=== PATIENT | female | born 1940 | race Caucasian/White ===

== ENCOUNTER 2018-02-09 01:46 | Observation (INO) | payer MEDICARE, MEDICAID ==
--- NOTE | 2018-02-09 02:21 | C.PDOC ---
History Of Present Illness 77 year old female is brought to the ED from her Long Term for evaluation. As per Long Term patient was found "unresponsive at the dinner table. Patient is usually rambunctious and agitated. While in the ED patient denies any physical complaint or pain. Chief Complaint (Nursing): Altered Mental Status History Per: Patient, Other (Long Term) History/Exam Limitations: None Onset/Duration Of Symptoms: Unknown Onset Of Symptoms: Cannot Confirm Onset Current Symptoms Are (Timing): Better Usual Baseline: Alert Oriented Exacerbating Factor(s): Unknown Use Of Anticoag/Antiplatelets: No Severity: None Recent travel outside of the [place]: No Additional History Per: Patient, Long Term Associated Symptoms: Confused Past Medical History Reviewed: Historical Data, Nursing Documentation, Vital Signs Vital Signs: Last Vital Signs Temp 97.6 F 02/09/18 04:21 Pulse 101 H 02/09/18 04:21 Resp 18 02/09/18 04:21 BP 134/72 02/09/18 04:21 Pulse Ox 100 02/09/18 06:53 - Medical History PMH: Arthritis (lt knee), Dementia, Diabetes, HTN, Hypercholesterolemia Denies: Rheumatoid Arthritis Surgical History: No Surg Hx - [facility] Procedures ESOPHAGOGASTRODUODENOSCOPY [EGD] W/CLOSED BIOPSY (10/08/13) Family History: States: Unknown Family Hx - Social History Hx Tobacco Use: No Hx Alcohol Use: No Hx Substance Use: No - Immunization History Hx Tetanus Toxoid Vaccination: No Hx Influenza Vaccination: No Hx Pneumococcal Vaccination: No Review Of Systems Constitutional: Negative for: Fever, Chills Cardiovascular: Negative for: Chest Pain, Palpitations Respiratory: Negative for: Shortness of Breath Gastrointestinal: Negative for: Nausea, Vomiting Skin: Negative for: Rash Neurological: Positive for: Confusion. Negative for: Weakness, Numbness Physical Exam - Physical Exam Appears: Non-toxic, No Acute Distress Skin: Normal Color, Warm, Dry Head: Atraumatic, Normacephalic Eye(s): bilateral: Normal Inspection Oral Mucosa: Moist Neck: Normal ROM, Supple Chest: Symmetrical Cardiovascular: Rhythm Regular Respiratory: Normal Breath Sounds, No Rales, No Rhonchi, No Wheezing Gastrointestinal/Abdominal: Soft, No Tenderness, No Guarding, No Rebound Back: Normal Inspection Extremity: Normal ROM, No Tenderness, No Swelling Neurological/Psych: Oriented x3, Normal Speech, Other (no focal deficits) Gait: Steady ED Course And Treatment - Laboratory Results Result Diagrams: 02/09/18 02:34 02/09/18 02:34 ECG: Interpreted By Me, Viewed By Me ECG Rhythm: Sinus Rhythm ECG Interpretation: No Acute Changes, Abnormal Interpretation Of ECG: Sinus tachycardia, poor R -wave progression V1 to V4, abnormal tracings. Rate From EC O2 Sat by Pulse Oximetry: 100 (ON RA) Pulse Ox Interpretation: Normal - CT Scan/US CT head Other Rad Studies (CT/US): Read By Radiologist, Radiology Report Reviewed CT/US Interpretation: FINDINGS: BRAIN: Involutional changes. Periventricular hypoattenuation suggestive of chronic ischemic. changes. No hemorrhage. VENTRICLES: Unremarkable. No ventriculomegaly. BONES/JOINTS: Unremarkable. No acute fracture. SOFT TISSUES: Unremarkable. VASCULATURE: Atherosclerosis. SINUSES: Unremarkable as visualized. No acute sinusitis. MASTOID AIR CELLS: Unremarkable as visualized. No mastoid effusion. IMPRESSION: Involutional changes. Periventricular hypoattenuation suggestive of chronic ischemic changes. NIHSS Stroke Scale - Date/Time Evaluation Performed Date Performed: 02/09/18 Time Performed: 01:50 When Was NIHSS Performed: Baseline - How Severe is the Stoke Level of Consciousness: 0=Alert LOC to Questions: 0=Both comments correct Best Gaze: 0=Normal Visual: 0=No visual loss Facial: 0=Normal Motor Arm - Left: 0=No drift Motor Arm - Right: 0=No drift Motor Leg - Left: 0=No drift Motor Leg - Right: 0=No drift Limb Ataxia: 0=Absent Sensory: 0=Normal Best Language: 0=No aphasia Dysarthia: 0=Normal articulation Extinction & Inattention (Neglect): 0=Normal, no object Severity Of Stroke: 0= No Stroke Medical Decision Making Medical Decision Making: Impression: confused Plan: * CT head * EKG * Labs Disposition Discussed With : Pradeep Felder Doctor Will See Patient In The: Hospital Counseled Patient/Family Regarding: Diagnosis - Disposition Disposition: HOSPITALIZED Disposition Time: 05:13 Condition: STABLE - POA Present On Arrival: None - Clinical Impression Clinical Impression: TIA (transient ischemic attack) - Scribe Statement The provider has reviewed the documentation as recorded by the Scribe Cleveland Ortiz All medical record entries made by the Scribe were at my direction and personally dictated by me. I have reviewed the chart and agree that the record accurately reflects my personal performance of the history, physical exam, medical decision making, and the department course for this patient. I have also personally directed, reviewed, and agree with the discharge instructions and disposition.
[2018-02-09 02:39] LABS: BASO % 0.4 % (0.0-2.0); EOS # 0.2 K/uL (0.0-0.7); EOS % 2.3 % (0.0-4.0); HEMOGLOBIN 12.9 g/dL (11.0-16.0); LYMPH # 2.4 K/uL (1.0-4.3); LYMPH % 35.8 % (20.0-40.0); MEAN CORPUSCULAR HGB CONC 33.8 g/dL (33.0-37.0); MONO # 0.6 K/uL (0.0-0.8); MONO % 9.6 % (0.0-10.0); NEUT # 3.5 K/uL (1.8-7.0); NEUT % 51.9 % (50.0-75.0); RBC 4.44 Mil/uL (3.80-5.20); RED CELL DISTRIBUTION WIDTH 14.4 % (11.5-14.5); WHITE BLOOD COUNT 6.7 K/uL (4.8-10.8)
[2018-02-09 02:49] LABS: ALB/GLOB RATIO 1.5 (1.0-2.1); ALBUMIN 4.4 g/dL (3.5-5.0); CALCIUM 11.7 mg/dl (8.6-10.4)
--- NOTE | 2018-02-09 06:05 | CP.PCM.HP ---
<CourtneydelvinAllyssa davisIvette - Last Filed: 02/09/18 07:29> History of Present Illness - History of Present Illness History of Present Illness: HPI: Patient is a 77 year old female with a history of HTN, DM, HLD, and dementia, who presents to the hospital after staff [facility] found patient in her chair unresponsive- "not answering, eyes closed, diaphoretic". Vitals were taken during the episode, heart rate was 37, BP 211/88 , glucose 88. Staff transferred patient to bed, she became more awake, alert, and combative, and then they called 911. Patient's heart rate increased to 80 fifteen minutes after. Patient is a poor history and has history of dementia with delusions. She reports she is in the hospital because she tripped and fell when she was walking on the side walk. Patient denies hitting any part of her body. Patient denies chest pain, headaches, dyspnea, abdominal pain, nausea, vomiting, fevers, changes in vision, dysuria, and dizziness. PMD: Dr. Amezquita PMHx: HTN, DM, HLD, dementia w/delusions SurgHx: denies FamHx: Mother & sister- [place] SocHx: denies tobacco, alcohol, and drug use; lives at [place] ([phone]) Allergies: NKDA Medication: patient does not know. list provided by [facility]it[facility] Present on Admission - Present on Admission Any Indicators Present on Admission: No Review of Systems - Review of Systems Systems not reviewed;Unavailable: Dementia - Constitutional Constitutional: absent: Fever, Headache - EENT Eyes: absent: Change in Vision - Cardiovascular Cardiovascular: absent: Chest Pain, Dyspnea, Palpitations - Respiratory Respiratory: absent: Dyspnea - Gastrointestinal Gastrointestinal: absent: Abdominal Pain, Diarrhea, Nausea, Vomiting - Genitourinary Genitourinary: absent: Change in Urinary Stream, Dysuria - Musculoskeletal Additional comments: Denies trauma - Neurological Neurological: absent: Dizziness, Headaches, Weakness Past Patient History - Infectious Disease Hx of Infectious Diseases: None - Tetanus Immunizations Tetanus Immunization: Unknown - Past Medical History & Family History Past Medical History?: Yes - Past Social History Smoking Status: Never Smoked - CARDIAC Hx Hypercholesterolemia: Yes Hx Hypertension: Yes - NEUROLOGICAL Hx Dementia: Yes - ENDOCRINE/METABOLIC Hx Diabetes Mellitus Type 2: Yes - MUSCULOSKELETAL/RHEUMATOLOGICAL Hx Arthritis: Yes (lt knee) Hx Rheumatoid Arthritis: No - PSYCHIATRIC Hx Substance Use: No - ANESTHESIA Hx Anesthesia: Yes Hx Anesthesia Reactions: No Meds Allergies/Adverse Reactions: Allergies Allergy/AdvReac Type Severity Reaction Status Date / Time No Known Allergies Allergy Verified 02/09/18 02:08 Physical Exam - Constitutional Appears: Confused - Head Exam Head Exam: NORMAL INSPECTION. absent: ATRAUMATIC - Eye Exam Eye Exam: EOMI, Normal appearance - ENT Exam ENT Exam: Mucous Membranes Dry - Respiratory Exam Respiratory Exam: Clear to Auscultation Bilateral, NORMAL BREATHING PATTERN. absent: Rales, Rhonchi, Wheezes, Respiratory Distress - Cardiovascular Exam Cardiovascular Exam: REGULAR RHYTHM, +S1, +S2 - GI/Abdominal Exam GI & Abdominal Exam: Normal Bowel Sounds, Soft. absent: Distended, Firm, Tenderness - Extremities Exam Extremities exam: Positive for: full ROM, normal inspection, pedal pulses present. Negative for: pedal edema, tenderness - Neurological Exam Neurological exam: Altered, CN II-XII Intact Additional comments: Motor and Sensory intact - Psychiatric Exam Psychiatric exam: Normal Mood - Skin Skin Exam: Dry, Intact, Normal Color, Warm Results - Vital Signs Recent Vital Signs: Last Vital Signs Temp 97.6 F 02/09/18 04:21 Pulse 101 H 02/09/18 04:21 Resp 18 02/09/18 04:21 BP 134/72 02/09/18 04:21 Pulse Ox 100 02/09/18 05:13 - Labs Result Diagrams: 02/09/18 02:34 02/09/18 02:34 Labs: Laboratory Results - last 24 hr 02/09/18 02/09/18 02/09/18 01:54 02:34 02:34 WBC 6.7 RBC 4.44 Hgb 12.9 Hct 38.2 MCV 86.0 MCH 29.0 MCHC 33.8 RDW 14.4 Plt Count 285 MPV 8.0 Neut % (Auto) 51.9 Lymph % (Auto) 35.8 [place] % (Auto) 9.6 Eos % (Auto) 2.3 Baso % (Auto) 0.4 Neut # (Auto) 3.5 Lymph # (Auto) 2.4 [place] # (Auto) 0.6 Eos # (Auto) 0.2 Baso # (Auto) 0.0 Sodium 142 Potassium 4.1 Chloride 105 Carbon Dioxide 23 Anion Gap 19 BUN 24 H Creatinine 1.2 Est GFR ( Amer) 53 Est GFR (Non-Af Amer) 44 POC Glucose (mg/dL) 303 H Random Glucose 249 H Calcium 11.7 H Total Bilirubin 0.3 AST 30 ALT 24 Alkaline Phosphatase 59 Total Protein 7.3 Albumin 4.4 Globulin 2.9 Albumin/Globulin Ratio 1.5 Assessment & Plan (1) Syncope Assessment and Plan: Admitted to telemetry EKG: sinus tachy @103bpm Head CT: involutional changes, periventricualrhypoattenuation suggesting chronic ischemic changes TSH/Free T4: f/u AARON: f/u Orthostatic VS Fall precaution Continue to monitor Status: Acute (2) Senile dementia with delusional features Assessment and Plan: Continue home medication: Rivastigmine 3mg po BID, Seroquel 37.5mg PO HS History of elopement- 1:1 observation Status: Acute (3) HTN (hypertension) Assessment and Plan: Continue home medications: clonidine 0.1mg PO HS, losartan 100mg daily, propanolol 120mg po daily Continue to monitor Status: Chronic (4) DM2 (diabetes mellitus, type 2) Assessment and Plan: Home medication: glipizide 10mg daily, jardiance 10mg daily, metformin 1000mg BID, toujeo 10units sc daily, tradjenta 5mg daily, trulicity 0.75mg sc weekly Continue metformin 1000mg PO BID, Glipizide 10mg PO daily; adjust as needed Hypoglycemic protocol ISS Accuchecks Status: Chronic (5) HLD (hyperlipidemia) Assessment and Plan: Home medication: Simvastatin 40mg PO HS Started Crestor 10mg PO daily Status: Acute (6) Prophylactic measure Assessment and Plan: DVT: SCDs GI: not indicated Heart health, 2g Na, Low carb diet Fall precautions 1:1 due to elopement risk POLST- Full Code (brought in with paperwork from [place]) Status: Acute <Pradeep Felder P - Last Filed: 02/10/18 06:53> Results - Vital Signs Recent Vital Signs: Last Vital Signs Temp 98.0 F 02/10/18 04:30 Pulse 79 02/10/18 04:30 Resp 20 02/10/18 04:30 BP 124/72 06/24/18 04:30 Pulse Ox 98 02/10/18 04:30 - Labs Result Diagrams: 02/09/18 02:34 02/09/18 02:34 Labs: Laboratory Results - last 24 hr 02/09/18 02/09/18 02/09/18 06:45 06:45 07:23 POC Glucose (mg/dL) 211 H Total Creatine Kinase 67 CK-MB (Mass) 1.00 Troponin I < 0.0120 Thyroxine (T4) 7.11 TSH 3rd Generation 0.48 02/09/18 02/09/18 02/09/18 11:35 14:06 16:40 POC Glucose (mg/dL) 202 H 160 H Total Creatine Kinase 47 CK-MB (Mass) 1.14 Troponin I < 0.0120 Thyroxine (T4) TSH 3rd Generation 02/09/18 02/10/18 20:59 06:11 POC Glucose (mg/dL) 170 H 149 H Total Creatine Kinase CK-MB (Mass) Troponin I Thyroxine (T4) TSH 3rd Generation Attending/Attestation - Attestation I have personally seen and examined this patient.: Yes I have fully participated in the care of the patient.: Yes I have reviewed all pertinent clinical information: Yes Notes (Text): Syncope at [place], but history can not be elicited as patient has significant, as discussed with [place] staff, on vitals HR 37/min during time of the symptoms with elevated bp, ? tacybrady syndrome, bradycardia from [facility]. Full code DM, no hypoglycemia H/o htn Full code POLST.
[2018-02-09 07:21] LABS: T4 7.11 ug/dL (5.5-11.0)
[2018-02-09] MEDS ORDERED: (Novolin R) Insulin Human Regular 100 units/ml vial ONE ×3 (07:54→16:50)
[2018-02-09] MEDS: (Novolin R) Insulin Human Regular 100 units/ml vial SC SCH ×4 (07:55→21:33)
--- NOTE | 2018-02-09 08:34 | CP.PCM.PN ---
<Roderick Brooks - Last Filed: 02/09/18 16:53> Subjective - Date & Time of Evaluation Date of Evaluation: 02/09/18 Time of Evaluation: 11:00 - Subjective Subjective: PGY-[address] Ball. No acute events noted overnight. Patient is non-verbal at baseline and did not answer my questions. Review of systems non-obtainable. Objective - Vital Signs/Intake and Output Vital Signs (last 24 hours): Temp Pulse Resp BP Pulse Ox 97.6 F 91 H 16 134/75 97 02/09/18 04:21 02/09/18 07:32 02/09/18 07:32 02/09/18 07:32 02/09/18 07:32 - Medications Medications: Current Medications Clonidine HCl (Catapres) 0.1 mg PO HS [facility] Glipizide (Glucotrol) 10 mg PO ACB [facility] Home Med (Rivastigmine [Exelon Cap]) 3 mg PO BID [facility] Insulin Human Regular (Novolin R) 0 unit SC ACHS [facility] PRN Reason: Protocol Last Admin: 02/09/18 07:55 Dose: 2 units Losartan Potassium (Cozaar) 100 mg PO DAILY [facility] Metformin HCl (Glucophage Xr) 1,000 mg PO BID [facility] Multivitamins (Hexavitamin) 1 tab PO DAILY [facility] Propranolol HCl (Inderal La) 120 mg PO DAILY [facility] Quetiapine Fumarate (Seroquel) 37.5 mg PO HS [facility] Rosuvastatin Calcium (Crestor) 10 mg PO HS [facility] - Labs Labs: 02/09/18 02:34 02/09/18 02:34 - Additional Findings Additional findings: Constitutional Appears: Confused - Head Exam Head Exam: NORMAL INSPECTION. absent: ATRAUMATIC - Eye Exam Eye Exam: EOMI, Normal appearance - ENT Exam ENT Exam: Mucous Membranes Moist - Respiratory Exam Respiratory Exam: Clear to Auscultation Bilateral, NORMAL BREATHING PATTERN. absent: Rales, Rhonchi, Wheezes, Respiratory Distress - Cardiovascular Exam Cardiovascular Exam: REGULAR RHYTHM, +S1, +S2 - GI/Abdominal Exam GI & Abdominal Exam: Normal Bowel Sounds, Soft. absent: Distended, Firm, Tenderness - Extremities Exam Extremities exam: Positive for: full ROM, normal inspection, pedal pulses present. Negative for: pedal edema, tenderness - Neurological Exam Neurological exam: Altered, CN II-XII Intact Additional comments: Motor and Sensory intact - Psychiatric Exam Psychiatric exam: Normal Mood - Skin Skin Exam: Dry, Intact, Normal Color, Warm Assessment and Plan - Assessment and Plan (Free Text) Assessment: (1) Syncope Assessment and Plan: Admitted to telemetry EKG: sinus tachy @103bpm Head CT: involutional changes, periventricualrhypoattenuation suggesting chronic ischemic changes TSH/Free T4: NORMAL AARON x2: NEGATIVE Orthostatic VS F/U Echo Fall precaution Continue to monitor Status: Acute (2) Senile dementia with delusional features Assessment and Plan: Continue home medication: Rivastigmine 3mg po BID, Seroquel 37.5mg PO HS History of elopement- 1:1 observation Status: Acute (3) HTN (hypertension) Assessment and Plan: Continue home medications: clonidine 0.1mg PO HS, losartan 100mg daily, propanolol 120mg po daily Continue to monitor Status: Chronic (4) DM2 (diabetes mellitus, type 2) Assessment and Plan: Home medication: glipizide 10mg daily, jardiance 10mg daily, metformin 1000mg BID, toujeo 10units sc daily, tradjenta 5mg daily, trulicity 0.75mg sc weekly Continue metformin 1000mg PO BID, Glipizide 10mg PO daily; adjust as needed Hypoglycemic protocol ISS Accuchecks Status: Chronic (5) HLD (hyperlipidemia) Assessment and Plan: Home medication: Simvastatin 40mg PO HS Started Crestor 10mg PO daily Status: Acute (6) Prophylactic measure Assessment and Plan: DVT: SCDs GI: not indicated Heart health, 2g Na, Low carb diet Fall precautions 1:1 due to elopement risk POLST- Full Code (brought in with paperwork from [place]) Status: Acute <Melinda Ball - Last Filed: 02/09/18 19:06> Objective - Vital Signs/Intake and Output Vital Signs (last 24 hours): Temp Pulse Resp BP Pulse Ox 97.9 F 81 20 128/54 L 98 02/09/18 18:19 02/09/18 18:19 02/09/18 18:19 02/09/18 18:19 02/09/18 18:19 - Medications Medications: Current Medications Clonidine HCl (Catapres) 0.1 mg PO HS [facility]IE Glipizide (Glucotrol) 10 mg PO ACB [facility] Last Admin: 02/09/18 09:06 Dose: 10 mg Insulin Human Regular (Novolin R) 0 unit SC ACHS [facility] PRN Reason: Protocol Last Admin: 02/09/18 16:47 Dose: 1 units Losartan Potassium (Cozaar) 100 mg PO DAILY [facility] Last Admin: 02/09/18 09:04 Dose: 100 mg Metformin HCl (Glucophage Xr) 1,000 mg PO BID [facility] Last Admin: 02/09/18 18:30 Dose: 1,000 mg Multivitamins (Hexavitamin) 1 tab PO DAILY [facility] Last Admin: 02/09/18 09:04 Dose: 1 tab Propranolol HCl (Inderal La) 120 mg PO DAILY [facility] Last Admin: 02/09/18 11:14 Dose: Not Given Quetiapine Fumarate (Seroquel) 37.5 mg PO HS [facility] Rivastigmine (Exelon 4.6 Mg/24 Hr Patch) 4.6 patch TD DAILY [facility] Last Admin: 02/09/18 12:24 Dose: 4.6 patch Rosuvastatin Calcium (Crestor) 10 mg PO HS [facility] - Labs Labs: 02/09/18 02:34 02/09/18 02:34 Attending/Attestation - Attestation I have personally seen and examined this patient.: Yes I have fully participated in the care of the patient.: Yes I have reviewed all pertinent clinical information, including history, physical exam and plan: Yes Notes (Text): Seen and examined by me. patient was brought in for syncope. She was bradycardia (HR 37 )at [place]. She was on propranolol 120mg at [place] We will stop propranolol. She was on it for a long period(Last year admission) We will get mapper for evaluation of syncope and bradycardia I agree with the resident's assessment and the plan
--- NOTE | 2018-02-09 09:02 | CT ---
PROCEDURE: CT HEAD WITHOUT CONTRAST. HISTORY: Headache COMPARISON: 10/08/2013. TECHNIQUE: Axial computed tomography images were obtained through the head/brain without intravenous contrast. Radiation dose: Total exam DLP = 779.95 mGy-cm. This CT exam was performed using one or more of the following dose reduction techniques: Automated exposure control, adjustment of the mA and/or kV according to patient size, and/or use of iterative reconstruction technique. FINDINGS: HEMORRHAGE: No intracranial hemorrhage. BRAIN: There are moderate chronic microangiopathic changes. There is no mass, mass effect or abnormal extra-axial fluid collection. There is no territorial infarction. There are coarse atherosclerotic calcifications in the cavernous carotid arteries. VENTRICLES: There is mild age-related global parenchymal volume loss and proportionate enlargement of the ventricles and cortical sulci. CALVARIUM: Unremarkable. PARANASAL SINUSES: Unremarkable as visualized. No significant inflammatory changes. MASTOID AIR CELLS: Unremarkable as visualized. No inflammatory changes. OTHER FINDINGS: None. IMPRESSION: No acute intracranial abnormality. Moderate chronic microangiopathic changes and mild age-related global parenchymal volume loss. A preliminary report was provided by [employer] services.
[2018-02-09] MEDS: Multiple Vitamins Tab PO SCH (09:04)
[2018-02-09] MEDS: Propranolol 60 mg ER Cap PO SCH (11:14)
[2018-02-09 14:37] LABS: CK-MB 1.14 ng/mL (0.0-3.38)
[2018-02-09] MEDS: QUEtiapine 12.5 MG TAB PO SCH (22:12)
--- NOTE | 2018-02-10 03:15 | CP.PCM.PN ---
<Allyssa Saha - Last Filed: 02/10/18 03:11> Subjective - Date & Time of Evaluation Date of Evaluation: 02/10/18 Time of Evaluation: 03:15 - Subjective Subjective: Medicine progress note for Dr. Ball Patient was seen and examined at bedside in no acute distress. Patient was sleeping comfortably in bed and has no complaints. Patient denies chest pain, dyspnea, abdominal pain, dizziness, headaches, nausea, vomiting, fevers, leg pain, and leg swelling. No acute events overnight. Objective - Vital Signs/Intake and Output Vital Signs (last 24 hours): Temp Pulse Resp BP Pulse Ox 98.2 F 81 20 121/78 100 02/09/18 19:18 02/09/18 23:30 02/09/18 19:18 02/09/18 19:18 02/09/18 19:18 - Medications Medications: Current Medications Clonidine HCl (Catapres) 0.1 mg PO HS [facility] Last Admin: 02/09/18 22:12 Dose: 0.1 mg Glipizide (Glucotrol) 10 mg PO ACB [facility] Last Admin: 02/09/18 09:06 Dose: 10 mg Insulin Human Regular (Novolin R) 0 unit SC [facility] PRN Reason: Protocol Last Admin: 02/09/18 21:33 Dose: Not Given Losartan Potassium (Cozaar) 100 mg PO DAILY [facility] Last Admin: 02/09/18 09:04 Dose: 100 mg Metformin HCl (Glucophage Xr) 1,000 mg PO BID [facility] Last Admin: 02/09/18 18:30 Dose: 1,000 mg Multivitamins (Hexavitamin) 1 tab PO DAILY [facility] Last Admin: 02/09/18 09:04 Dose: 1 tab Propranolol HCl (Inderal La) 120 mg PO DAILY [facility] Last Admin: 02/09/18 11:14 Dose: Not Given Quetiapine Fumarate (Seroquel) 37.5 mg PO HS [facility] Last Admin: 02/09/18 22:12 Dose: 37.5 mg Rivastigmine (Exelon 4.6 Mg/24 Hr Patch) 4.6 patch TD DAILY [facility] Last Admin: 02/09/18 12:24 Dose: 4.6 patch Rosuvastatin Calcium (Crestor) 10 mg PO HS [facility] Last Admin: 06/23/18 22:12 Dose: 10 mg - Labs Labs: 02/09/18 02:34 02/09/18 02:34 - Additional Findings Additional findings: Constitutional Appears: Confused - Head Exam Head Exam: NORMAL INSPECTION. absent: ATRAUMATIC - Eye Exam Eye Exam: EOMI, Normal appearance - ENT Exam ENT Exam: Mucous Membranes Moist - Respiratory Exam Respiratory Exam: Clear to Auscultation Bilateral, NORMAL BREATHING PATTERN. absent: Rales, Rhonchi, Wheezes, Respiratory Distress - Cardiovascular Exam Cardiovascular Exam: REGULAR RHYTHM, +S1, +S2 - GI/Abdominal Exam GI & Abdominal Exam: Normal Bowel Sounds, Soft. absent: Distended, Firm, Tenderness - Extremities Exam Extremities exam: Positive for: full ROM, normal inspection, pedal pulses present. Negative for: pedal edema, tenderness - Neurological Exam Neurological exam: Altered, CN II-XII Intact Additional comments: Motor and Sensory intact - Psychiatric Exam Psychiatric exam: Normal Mood - Skin Skin Exam: Dry, Intact, Normal Color, Warm Assessment and Plan (1) Syncope Status: Acute (2) Senile dementia with delusional features Status: Acute (3) HTN (hypertension) Status: Chronic (4) DM2 (diabetes mellitus, type 2) Status: Chronic (5) HLD (hyperlipidemia) Status: Acute (6) Prophylactic measure Status: Acute - Assessment and Plan (Free Text) Plan: (1) Syncope Assessment and Plan: Admitted to telemetry EKG: sinus tachy @103bpm Head CT: involutional changes, periventricualrhypoattenuation suggesting chronic ischemic changes TSH/Free T4: NORMAL AARON x2: NEGATIVE Orthostatic VS F/U Echo Fall precaution Continue to monitor Consult: Cardiology, Dr. Fong; help appreciated (2) Senile dementia with delusional features Assessment and Plan: Continue home medication: Rivastigmine 3mg po BID, Seroquel 37.5mg PO HS History of elopement- 1:1 observation (3) HTN (hypertension) Assessment and Plan: Continue home medications: clonidine 0.1mg PO HS, losartan 100mg daily, propanolol 120mg po daily Continue to monitor (4) DM2 (diabetes mellitus, type 2) Assessment and Plan: Home medication: glipizide 10mg daily, jardiance 10mg daily, metformin 1000mg BID, toujeo 10units sc daily, tradjenta 5mg daily, trulicity 0.75mg sc weekly Continue metformin 1000mg PO BID, Glipizide 10mg PO daily; adjust as needed Hypoglycemic protocol ISS Accuchecks (5) HLD (hyperlipidemia) Assessment and Plan: Home medication: Simvastatin 40mg PO HS Started Crestor 10mg PO daily (6) Prophylactic measure Assessment and Plan: DVT: SCDs GI: not indicated Heart health, 2g Na, Low carb diet Fall precautions 1:1 due to elopement risk POLST- Full Code (brought in with paperwork from [place]) <Melinda Ball - Last Filed: 02/11/18 09:42> Objective - Vital Signs/Intake and Output Vital Signs (last 24 hours): Temp Pulse Resp BP Pulse Ox 98.1 F 89 20 151/79 H 96 02/11/18 07:35 02/11/18 07:49 02/11/18 07:35 02/11/18 07:35 02/11/18 07:35 - Medications Medications: Current Medications Clonidine HCl (Catapres) 0.1 mg PO HS [facility] Last Admin: 02/10/18 22:37 Dose: Not Given Enoxaparin Sodium (Lovenox) 40 mg SC DAILY [facility] Glipizide (Glucotrol) 10 mg PO ACB [facility] Last Admin: 02/11/18 08:29 Dose: Not Given Insulin Human Regular (Novolin R) 0 unit SC [facility] PRN Reason: Protocol Last Admin: 02/11/18 08:30 Dose: Not Given Losartan Potassium (Cozaar) 100 mg PO DAILY [facility] Last Admin: 02/10/18 11:13 Dose: 100 mg Metformin HCl (Glucophage Xr) 1,000 mg PO BID [facility] Last Admin: 02/10/18 18:38 Dose: Not Given Multivitamins (Hexavitamin) 1 tab PO DAILY [facility] Last Admin: 02/10/18 11:19 Dose: 1 tab Propranolol HCl (Inderal La) 120 mg PO DAILY [facility] Last Admin: 02/10/18 11:14 Dose: 120 mg Quetiapine Fumarate (Seroquel) 37.5 mg PO HS [facility] Last Admin: 02/10/18 22:36 Dose: Not Given Rivastigmine (Exelon 4.6 Mg/24 Hr Patch) 4.6 patch TD DAILY [facility] Last Admin: 02/10/18 11:12 Dose: 4.6 patch Rosuvastatin Calcium (Crestor) 10 mg PO HS [facility] Last Admin: 02/10/18 22:37 Dose: Not Given - Labs Labs: 02/11/18 07:24 02/11/18 07:24 Attending/Attestation - Attestation I have personally seen and examined this patient.: Yes I have fully participated in the care of the patient.: Yes I have reviewed all pertinent clinical information, including history, physical exam and plan: Yes Notes (Text): Seen and examined by me.Patient is confused. Discussed with her sister at bedside.As per her sister who takes care of her stated that she has no children and not .She was living with her until her dementia got worse and unable to manage her at home. Patient refuses meds at [facility]. I discussed about advance directives and her progressive dementia. She agrees that conservative management is better her. I agree with the documentation of the resident's assessment and the plan
[2018-02-10] MEDS: (Novolin R) Insulin Human Regular 100 units/ml vial SC SCH ×4 (08:10→22:36)
[2018-02-10] MEDS: Propranolol 60 mg ER Cap PO SCH (11:14)
[2018-02-10] MEDS: Multiple Vitamins Tab PO SCH (11:19)
[2018-02-10 14:12] LABS: BASO % 0.5 % (0.0-2.0); EOS # 0.2 K/uL (0.0-0.7); EOS % 3.8 % (0.0-4.0); HEMOGLOBIN 12.7 g/dL (11.0-16.0); LYMPH # 2.4 K/uL (1.0-4.3); LYMPH % 38.5 % (20.0-40.0); MEAN CELL VOLUME 86.9 fL (81.0-99.0); MEAN CORPUSCULAR HEMOGLOBIN 29.6 pg (27.0-31.0); MEAN CORPUSCULAR HGB CONC 34.1 g/dL (33.0-37.0); MEAN PLATELET VOLUME 8.2 fL (7.2-11.7); MONO # 0.5 K/uL (0.0-0.8); MONO % 8.7 % (0.0-10.0); NEUT % 48.5 % (50.0-75.0); RBC 4.28 Mil/uL (3.80-5.20); RED CELL DISTRIBUTION WIDTH 14.2 % (11.5-14.5); WHITE BLOOD COUNT 6.1 K/uL (4.8-10.8)
[2018-02-10 14:26] LABS: ALB/GLOB RATIO 1.4 (1.0-2.1); ALBUMIN 4.3 g/dL (3.5-5.0); ALT/SGPT 28 U/L (9-52); AST/SGOT 30 U/L (14-36); BLOOD UREA NITROGEN 27 mg/dL (7-17); CALCIUM 11.1 mg/dl (8.6-10.4); GFR AFRICAN-AMERICAN > 60; GFR NON-AFRICAN AMERICAN > 60
--- NOTE | 2018-02-10 16:22 | CP.PCM.CON ---
History of Present Illness - History of Present Illness History of Present Illness: Re: syncope Bradycardia 77 year old admitted with history of transient altered mental status bradycardia with heart rates of 37 betas per minute and severe systemic hypertension; symptoms resolved once made supine in her bed; she has remained stable since transfer to this hospital No history of seizures hypoglycemia chest pain dyspnea palpitations prior episodes; prior cardiovascular history/imaging unknown and unavailable Past medical Systemic hypertension' Hyperlipidemia Diabetes Mellitus Dementia Past surgery: none correction resident follows up with Dr. Amezquita Exam Afebrile No distress Sitting upright in bed Normal venous pressures Normal carotids No goiter ?PMI No parasternal heave Normal heart sounds No murmurs/rubs Soft abdomen No edema Alert comprehends fluent Normal facial symmetrical motor movements Past Patient History - Infectious Disease Hx of Infectious Diseases: None - Tetanus Immunizations Tetanus Immunization: Unknown - Past Medical History & Family History Past Medical History?: Yes - Past Social History Smoking Status: Never Smoked - CARDIAC Hx Hypercholesterolemia: Yes Hx Hypertension: Yes - NEUROLOGICAL Hx Dementia: Yes - ENDOCRINE/METABOLIC Hx Diabetes Mellitus Type 2: Yes - MUSCULOSKELETAL/RHEUMATOLOGICAL Hx Arthritis: Yes (lt knee) Hx Rheumatoid Arthritis: No - PSYCHIATRIC Hx Substance Use: No - ANESTHESIA Hx Anesthesia: Yes Hx Anesthesia Reactions: No Meds Allergies/Adverse Reactions: Allergies Allergy/AdvReac Type Severity Reaction Status Date / Time No Known Allergies Allergy Verified 02/09/18 02:08 - Medications Medications: Current Medications Clonidine HCl (Catapres) 0.1 mg PO HS [facility] Last Admin: 02/09/18 22:12 Dose: 0.1 mg Enoxaparin Sodium (Lovenox) 40 mg SC DAILY [facility] Glipizide (Glucotrol) 10 mg PO ACB [facility] Last Admin: 02/10/18 08:15 Dose: 10 mg Insulin Human Regular (Novolin R) 0 unit SC [facility] PRN Reason: Protocol Last Admin: 02/10/18 12:38 Dose: 2 units Losartan Potassium (Cozaar) 100 mg PO DAILY [facility] Last Admin: 02/10/18 11:13 Dose: 100 mg Metformin HCl (Glucophage Xr) 1,000 mg PO BID [facility] Last Admin: 02/10/18 10:15 Dose: 1,000 mg Multivitamins (Hexavitamin) 1 tab PO DAILY [facility] Last Admin: 02/10/18 11:19 Dose: 1 tab Propranolol HCl (Inderal La) 120 mg PO DAILY [facility] Last Admin: 02/10/18 11:14 Dose: 120 mg Quetiapine Fumarate (Seroquel) 37.5 mg PO [facility] Last Admin: 02/09/18 22:12 Dose: 37.5 mg Rivastigmine (Exelon 4.6 Mg/24 Hr Patch) 4.6 patch TD DAILY [facility] Last Admin: 02/10/18 11:12 Dose: 4.6 patch Rosuvastatin Calcium (Crestor) 10 mg PO HS [facility] Last Admin: 02/09/18 22:12 Dose: 10 mg Results - Vital Signs Recent Vital Signs: Last Vital Signs Temp 98.0 F 02/10/18 04:30 Pulse 84 02/10/18 08:00 Resp 20 02/10/18 04:30 BP 124/72 02/10/18 04:30 Pulse Ox 98 02/10/18 12:23 - Labs Result Diagrams: 02/10/18 14:05 02/10/18 14:05 Labs: Laboratory Results - last 24 hr 02/09/18 02/09/18 02/10/18 16:40 20:59 06:11 WBC RBC Hgb Hct MCV MCH MCHC RDW Plt Count MPV Neut % (Auto) Lymph % (Auto) [place] % (Auto) Eos % (Auto) Baso % (Auto) Neut # (Auto) Lymph # (Auto) [place] # (Auto) Eos # (Auto) Baso # (Auto) Sodium Potassium Chloride Carbon Dioxide Anion Gap BUN Creatinine Est GFR ( Amer) Est GFR (Non-Af Amer) POC Glucose (mg/dL) 160 H 170 H 149 H Random Glucose Calcium Total Bilirubin AST ALT Alkaline Phosphatase Total Protein Albumin Globulin Albumin/Globulin Ratio 02/10/18 02/10/18 02/10/18 11:56 14:05 14:05 WBC 6.1 RBC 4.28 Hgb 12.7 Hct 37.2 MCV 86.9 MCH 29.6 MCHC 34.1 RDW 14.2 Plt Count 262 MPV 8.2 Neut % (Auto) 48.5 L Lymph % (Auto) 38.5 [place] % (Auto) 8.7 Eos % (Auto) 3.8 Baso % (Auto) 0.5 Neut # (Auto) 3.0 Lymph # (Auto) 2.4 [place] # (Auto) 0.5 Eos # (Auto) 0.2 Baso # (Auto) 0.0 Sodium 145 Potassium 4.6 Chloride 104 Carbon Dioxide 27 Anion Gap 18 BUN 27 H Creatinine 0.9 Est GFR ( Amer) > 60 Est GFR (Non-Af Amer) > 60 POC Glucose (mg/dL) 207 H Random Glucose 205 H Calcium 11.1 H Total Bilirubin 0.6 AST 30 ALT 28 Alkaline Phosphatase 53 Total Protein 7.3 Albumin 4.3 Globulin 3.0 Albumin/Globulin Ratio 1.4 Assessment & Plan - Assessment and Plan (Free Text) Assessment: 77 year old female with transient mental status changes on a background of bradycardia, systolic hypertension, vascular risk factors, dementia and a negative neuroimaging studies and no acute changes noted on the EKG or laboratory data The index event defies an obvious explanation; circumstantial evidence does suggest a hemodynamic event (cf: neurological); the bradycardia (??sinus versus a transient complete heart block), is likely incidental given its temporaneous correlation with systemic hypertension At this point would exclude alternate etiologies for mental status changes; optimize anti-hypertensive medications, avoid moriah (sinus and Atrio-ventricular ) stressors and institute fall precautions and explore advance directive Diagnostic options include an echocardiogram thyroid function and halfway rhythm monitoring Plan: See above
[2018-02-10] MEDS: QUEtiapine 12.5 MG TAB PO SCH (22:36)
[2018-02-11 07:37] LABS: BASO % 0.5 % (0.0-2.0); EOS # 0.2 K/uL (0.0-0.7); HEMOGLOBIN 13.7 g/dL (11.0-16.0); LYMPH # 2.9 K/uL (1.0-4.3); LYMPH % 48.7 % (20.0-40.0); MEAN CELL VOLUME 85.8 fL (81.0-99.0); MEAN CORPUSCULAR HEMOGLOBIN 29.2 pg (27.0-31.0); MEAN PLATELET VOLUME 7.8 fL (7.2-11.7); MONO # 0.6 K/uL (0.0-0.8); MONO % 9.9 % (0.0-10.0); NEUT # 2.2 K/uL (1.8-7.0); NEUT % 36.9 % (50.0-75.0); NRBC % 0.1 % (0.0-2.0); RBC 4.69 Mil/uL (3.80-5.20); RED CELL DISTRIBUTION WIDTH 14.2 % (11.5-14.5)
[2018-02-11 08:04] LABS: ALB/GLOB RATIO 1.4 (1.0-2.1); ALBUMIN 4.7 g/dL (3.5-5.0); ALT/SGPT 25 U/L (9-52); AST/SGOT 32 U/L (14-36); BLOOD UREA NITROGEN 23 mg/dL (7-17); CALCIUM 11.6 mg/dl (8.6-10.4); GFR AFRICAN-AMERICAN > 60; GFR NON-AFRICAN AMERICAN > 60
[2018-02-11] MEDS: (Novolin R) Insulin Human Regular 100 units/ml vial SC SCH ×5 (08:27→21:16)
[2018-02-11] MEDS: Multiple Vitamins Tab PO SCH (10:41)
[2018-02-11] MEDS: Enoxaparin 40 mg Syringe SC SCH (10:42)
[2018-02-11] MEDS: Propranolol 60 mg ER Cap PO SCH (10:42)
--- NOTE | 2018-02-11 15:56 | CP.PCM.PN ---
<Roderick Brooks - Last Filed: 02/11/18 15:52> Subjective - Date & Time of Evaluation Date of Evaluation: 02/11/18 Time of Evaluation: 10:45 - Subjective Subjective: PGY-[address] Sauer. No acute events noted overnight. Patient has been refusing medications lately. She has also been agitated per nurse, but was not when I saw her today. She was to get an echo this morning but became agitated during the procedure and the echo was cancelled. She did not offer any complaints today on review of systems. Objective - Vital Signs/Intake and Output Vital Signs (last 24 hours): Temp Pulse Resp BP Pulse Ox 98.1 F 89 20 151/79 H 96 02/11/18 07:35 02/11/18 07:49 02/11/18 07:35 02/11/18 07:35 02/11/18 07:35 - Medications Medications: Current Medications Clonidine HCl (Catapres) 0.1 mg PO HS [facility] Last Admin: 02/10/18 22:37 Dose: Not Given Enoxaparin Sodium (Lovenox) 40 mg SC DAILY [facility] Last Admin: 02/11/18 10:42 Dose: Not Given Glipizide (Glucotrol) 10 mg PO ACB [facility] Last Admin: 02/11/18 08:29 Dose: Not Given Insulin Human Regular (Novolin R) 0 unit SC [facility] PRN Reason: Protocol Last Admin: 02/11/18 12:21 Dose: 1 units Losartan Potassium (Cozaar) 100 mg PO DAILY [facility] Last Admin: 02/11/18 10:41 Dose: Not Given Metformin HCl (Glucophage Xr) 1,000 mg PO BID [facility] Last Admin: 02/11/18 10:41 Dose: Not Given Multivitamins (Hexavitamin) 1 tab PO DAILY [facility] Last Admin: 02/11/18 10:41 Dose: Not Given Propranolol HCl (Inderal La) 120 mg PO DAILY [facility] Last Admin: 02/11/18 10:42 Dose: Not Given Quetiapine Fumarate (Seroquel) 37.5 mg PO HS [facility] Last Admin: 02/10/18 22:36 Dose: Not Given Rivastigmine (Exelon 4.6 Mg/24 Hr Patch) 4.6 patch TD DAILY [facility] Stop: 02/11/18 18:00 Last Admin: 02/11/18 10:41 Dose: Not Given Rivastigmine (Exelon 4.6 Mg/24 Hr Patch) 1 patch TD DAILY [facility] Rosuvastatin Calcium (Crestor) 10 mg PO HS [facility] Last Admin: 02/10/18 22:37 Dose: Not Given - Labs Labs: 02/11/18 07:24 02/11/18 07:24 - Additional Findings Additional findings: Constitutional Appears: Confused - Head Exam Head Exam: NORMAL INSPECTION. absent: ATRAUMATIC - Eye Exam Eye Exam: EOMI, Normal appearance - ENT Exam ENT Exam: Mucous Membranes Moist - Respiratory Exam Respiratory Exam: Clear to Auscultation Bilateral, NORMAL BREATHING PATTERN. absent: Rales, Rhonchi, Wheezes, Respiratory Distress - Cardiovascular Exam Cardiovascular Exam: REGULAR RHYTHM, +S1, +S2 - GI/Abdominal Exam GI & Abdominal Exam: Normal Bowel Sounds, Soft. absent: Distended, Firm, Tenderness - Extremities Exam Extremities exam: Positive for: full ROM, normal inspection, pedal pulses present. Negative for: pedal edema, tenderness - Neurological Exam Neurological exam: Altered, CN II-XII Intact Additional comments: Motor and Sensory intact - Psychiatric Exam Psychiatric exam: Normal Mood - Skin Skin Exam: Dry, Intact, Normal Color, Warm Assessment and Plan - Assessment and Plan (Free Text) Assessment: (1) Syncope Assessment and Plan: Admitted to telemetry EKG: sinus tachy @103bpm Head CT: involutional changes, periventricualrhypoattenuation suggesting chronic ischemic changes TSH/Free T4: NORMAL AARON x2: NEGATIVE Orthostatic VS Echo cancelled due to patient becoming agitated * Gave her one time dose ativan 0.5mg IV 02/11/18 Fall precaution Continue to monitor Consult: Cardiology, Dr. Fong; help appreciated * Diagnostic options include an echocardiogram thyroid function and fdc rhythm monitoring (2) Senile dementia with delusional features Assessment and Plan: Continue home medication: Rivastigmine 3mg po BID, Seroquel 37.5mg PO HS History of elopement- 1:1 observation (3) HTN (hypertension) Assessment and Plan: Continue home medications: clonidine 0.1mg PO HS, losartan 100mg daily, propanolol 120mg po daily Continue to monitor (4) DM2 (diabetes mellitus, type 2) Assessment and Plan: Home medication: glipizide 10mg daily, jardiance 10mg daily, metformin 1000mg BID, toujeo 10units sc daily, tradjenta 5mg daily, trulicity 0.75mg sc weekly Continue metformin 1000mg PO BID, Glipizide 10mg PO daily; adjust as needed Hypoglycemic protocol ISS Accuchecks (5) HLD (hyperlipidemia) Assessment and Plan: Home medication: Simvastatin 40mg PO HS Started Crestor 10mg PO daily (6) Prophylactic measure Assessment and Plan: DVT: SCDs GI: not indicated Heart health, 2g Na, Low carb diet Fall precautions 1:1 due to elopement risk POLST- DNI (brought in with paperwork from [place]) <Max Sauer H - Last Filed: 02/11/18 16:49> Objective - Vital Signs/Intake and Output Vital Signs (last 24 hours): Temp Pulse Resp BP Pulse Ox 98.1 F 89 20 151/79 H 96 02/11/18 07:35 02/11/18 07:49 02/11/18 07:35 02/11/18 07:35 02/11/18 07:35 - Medications Medications: Current Medications Clonidine HCl (Catapres) 0.1 mg PO HS [facility] Last Admin: 02/10/18 22:37 Dose: Not Given Enoxaparin Sodium (Lovenox) 40 mg SC DAILY [facility] Last Admin: 02/11/18 10:42 Dose: Not Given Glipizide (Glucotrol) 10 mg PO ACB [facility] Last Admin: 02/11/18 08:29 Dose: Not Given Insulin Human Regular (Novolin R) 0 unit SC [facility] PRN Reason: Protocol Last Admin: 02/11/18 12:21 Dose: 1 units Losartan Potassium (Cozaar) 100 mg PO DAILY [facility] Last Admin: 02/11/18 10:41 Dose: Not Given Metformin HCl (Glucophage Xr) 1,000 mg PO BID [facility] Last Admin: 02/11/18 10:41 Dose: Not Given Multivitamins (Hexavitamin) 1 tab PO DAILY [facility] Last Admin: 02/11/18 10:41 Dose: Not Given Propranolol HCl (Inderal La) 120 mg PO DAILY [facility] Last Admin: 02/11/18 10:42 Dose: Not Given Quetiapine Fumarate (Seroquel) 37.5 mg PO HS [facility] Last Admin: 02/10/18 22:36 Dose: Not Given Rivastigmine (Exelon 4.6 Mg/24 Hr Patch) 4.6 patch TD DAILY [facility] Stop: 02/11/18 18:00 Last Admin: 02/11/18 10:41 Dose: Not Given Rivastigmine (Exelon 4.6 Mg/24 Hr Patch) 1 patch TD DAILY [facility] Rosuvastatin Calcium (Crestor) 10 mg PO HS [facility] Last Admin: 02/10/18 22:37 Dose: Not Given - Labs Labs: 02/11/18 07:24 02/11/18 07:24 Attending/Attestation - Attestation I have personally seen and examined this patient.: Yes I have fully participated in the care of the patient.: Yes I have reviewed all pertinent clinical information, including history, physical exam and plan: Yes Notes (Text): 02/11/18 16:45 Medical attending: Patient was seen and examined by me, reviewed the above note by the medical imaging technician The patient was being moved down to [place], however we received word later that she refused the echo. Hopefully with very small amount of ativan this will help. Otherwise [facility]. Currently HR and BP are stable at this time. Max Sauer
--- NOTE | 2018-02-11 16:30 | CARD ---
APPROVED REPORT EXAM: Two-dimensional and M-mode echocardiogram with Doppler and color Doppler. Other Information Quality : GoodRhythm : NSR INDICATION Syncope 2D DIMENSIONS IVSd1.2 (0.7-1.1cm)LVDd3.1 (3.9-5.9cm) PWd1.1 (0.7-1.1cm)LVDs1.9 (2.5-4.0cm) FS (%) 41.1 %LVEF (%)73.3 (>50%) M-Mode DIMENSIONS Left Atrium (MM)3.07 (2.5-4.0cm)Aortic Root2.79 (2.2-3.7cm) Aortic Cusp Exc.1.40 (1.5-2.0cm) Mitral Valve E/A ratio0.0 TDI E/Lateral E'0.0E/Medial E'0.0 <Conclusion> tds. incomplete study. normal size la,lv & ra rv. mild concentric lvh with normal lvef of 65-70%. mitral,aortic,tv appears normal. doppler is incomplete. please repeat study when feasible.
--- NOTE | 2018-02-11 20:05 | CARD ---
APPROVED REPORT EKG Measurement Heart [id number] <Conclusion> Sinus tachycardia Anteroseptal infarct, age undetermined Abnormal ECG
[2018-02-11] MEDS: QUEtiapine 12.5 MG TAB PO SCH (22:08)
[2018-02-12 07:37] LABS: ALB/GLOB RATIO 1.4 (1.0-2.1); ALBUMIN 4.1 g/dL (3.5-5.0); ALT/SGPT 25 U/L (9-52); AST/SGOT 26 U/L (14-36); BLOOD UREA NITROGEN 25 mg/dL (7-17); CALCIUM 10.9 mg/dl (8.6-10.4); GFR AFRICAN-AMERICAN > 60; GFR NON-AFRICAN AMERICAN 54
[2018-02-12 07:43] LABS: BASO % 0.5 % (0.0-2.0); EOS # 0.2 K/uL (0.0-0.7); EOS % 4.4 % (0.0-4.0); HEMOGLOBIN 12.9 g/dL (11.0-16.0); LYMPH # 2.8 K/uL (1.0-4.3); LYMPH % 58.5 % (20.0-40.0); MEAN CELL VOLUME 86.2 fL (81.0-99.0); MEAN CORPUSCULAR HEMOGLOBIN 29.2 pg (27.0-31.0); MEAN CORPUSCULAR HGB CONC 33.9 g/dL (33.0-37.0); MEAN PLATELET VOLUME 7.9 fL (7.2-11.7); MONO # 0.5 K/uL (0.0-0.8); MONO % 10.8 % (0.0-10.0); NEUT # 1.2 K/uL (1.8-7.0); NEUT % 25.8 % (50.0-75.0); NRBC % 0.1 % (0.0-2.0); RBC 4.43 Mil/uL (3.80-5.20); WHITE BLOOD COUNT 4.8 K/uL (4.8-10.8)
[2018-02-12] MEDS: (Novolin R) Insulin Human Regular 100 units/ml vial SC SCH ×5 (08:30→21:47)
[2018-02-12] MEDS: Multiple Vitamins Tab PO SCH (11:11)
[2018-02-12] MEDS: Propranolol 60 mg ER Cap PO SCH (11:12)
[2018-02-12] MEDS: Enoxaparin 40 mg Syringe SC SCH (11:13)
--- NOTE | 2018-02-12 16:45 | CP.PCM.DIS ---
<Roderick Brooks - Last Filed: 02/12/18 16:42> Provider - Provider Date of Admission: 02/09/18 05:14 Attending physician: Max Sauer DO Primary care physician: ROCHELLED: Dr. Amezquita Consults: Cardio: Dr Fong Time Spent in preparation of Discharge (in minutes): 46 Hospital Course - Lab Results Lab Results: Most Recent Lab Values WBC 4.8 K/uL (4.8-10.8) 02/12/18 07:11 RBC 4.43 Mil/uL (3.80-5.20) 02/12/18 07:11 Hgb 12.9 g/dL (11.0-16.0) 02/12/18 07:11 Hct 38.1 % (34.0-47.0) 02/12/18 07:11 MCV 86.2 fL (81.0-99.0) 02/12/18 07:11 MCH 29.2 pg (27.0-31.0) 02/12/18 07:11 MCHC 33.9 g/dL (33.0-37.0) 02/12/18 07:11 RDW 14.0 % (11.5-14.5) 02/12/18 07:11 Plt Count 262 K/uL (130-400) 02/12/18 07:11 MPV 7.9 fL (7.2-11.7) 02/12/18 07:11 Neut % (Auto) 25.8 % (50.0-75.0) L 02/12/18 07:11 Lymph % (Auto) 58.5 % (20.0-40.0) H 02/12/18 07:11 [place] % (Auto) 10.8 % (0.0-10.0) H 02/12/18 07:11 Eos % (Auto) 4.4 % (0.0-4.0) H 02/12/18 07:11 Baso % (Auto) 0.5 % (0.0-2.0) 02/12/18 07:11 Neut # (Auto) 1.2 K/uL (1.8-7.0) L 02/12/18 07:11 Lymph # (Auto) 2.8 K/uL (1.0-4.3) 02/12/18 07:11 [place] # (Auto) 0.5 K/uL (0.0-0.8) 02/12/18 07:11 Eos # (Auto) 0.2 K/uL (0.0-0.7) 02/12/18 07:11 Baso # (Auto) 0.0 K/uL (0.0-0.2) 02/12/18 07:11 Sodium 145 mmol/L (132-148) 02/12/18 07:11 Potassium 4.2 mmol/L (3.6-5.2) 02/12/18 07:11 Chloride 107 mmol/L (98-107) 02/12/18 07:11 Carbon Dioxide 28 mmol/L (22-30) 02/12/18 07:11 Anion Gap 14 (10-20) 02/12/18 07:11 BUN 25 mg/dL (7-17) H 02/12/18 07:11 Creatinine 1.0 mg/dL (0.7-1.2) 02/12/18 07:11 Est GFR ( Amer) > 60 02/12/18 07:11 Est GFR (Non-Af Amer) 54 02/12/18 07:11 POC Glucose (mg/dL) 354 mg/dL (65-110) H 02/12/18 11:58 Random Glucose 183 mg/dL (65-105) H 02/12/18 07:11 Calcium 10.9 mg/dl (8.6-10.4) H 02/12/18 07:11 Total Bilirubin 0.4 mg/dL (0.2-1.3) 02/12/18 07:11 AST 26 U/L (14-36) 02/12/18 07:11 ALT 25 U/L (9-52) 02/12/18 07:11 Alkaline Phosphatase 55 U/L (38-126) 02/12/18 07:11 Total Creatine Kinase 47 U/L (30-135) 02/09/18 14:06 CK-MB (Mass) 1.14 ng/mL (0.0-3.38) 02/09/18 14:06 Troponin I < 0.0120 ng/mL (0.00-0.120) 02/09/18 14:06 Total Protein 7.1 g/dL (6.3-8.3) 02/12/18 07:11 Albumin 4.1 g/dL (3.5-5.0) 02/12/18 07:11 Globulin 3.0 gm/dL (2.2-3.9) 02/12/18 07:11 Albumin/Globulin Ratio 1.4 (1.0-2.1) 02/12/18 07:11 Thyroxine (T4) 7.11 ug/dL (5.5-11.0) 02/09/18 06:45 TSH 3rd Generation 0.48 mIU/L (0.46-4.68) 02/09/18 06:45 - Hospital Course Hospital Course: History of Present Illness: HPI: Patient is a 77 year old female with a history of HTN, DM, HLD, and dementia, who presents to the hospital after staff at skilled nursing ([facility]) found patient in her chair unresponsive- "not answering, eyes closed, diaphoretic". Vitals were taken during the episode, heart rate was 37, BP 211/88 , glucose 88. Staff transferred patient to bed, she became more awake, alert, and combative, and then they called 911. Patient's heart rate increased to 80 fifteen minutes after. Patient is a poor history and has history of dementia with delusions. She reports she is in the hospital because she tripped and fell when she was walking on the side walk. Patient denies hitting any part of her body. Patient denies chest pain, headaches, dyspnea, abdominal pain, nausea, vomiting, fevers, changes in vision, dysuria, and dizziness. PMD: Dr. Amezquita PMHx: HTN, DM, HLD, dementia w/delusions SurgHx: denies FamHx: Mother & sister- [place] SocHx: denies tobacco, alcohol, and drug use; lives at [facility] ([phone]) Allergies: NKDA Medication: patient does not know. list provided by skilled nursing HOSPITAL COURSE: Patient admitted for syncope (or near syncope - it is unclear - apparently her HR at this time was 37). Patient examined by electrical technology instructor, Dr Fong (see his note). Patient was to get an echo but she became agitated and study was incomplete. She was monitor and monitor history was reviewed - she was never elyse during her stay here - her monitor history looked benign. Her lab work was good with the exception of her sugars - her home dm meds were continued. Most of her home meds were continued to treat her chronic conditions. By her last day here she had good strength, was in a good mood and able to talk and follow commands well. Please see latest a/p shown below for specifics on management: (1) Syncope Assessment and Plan: Admitted to telemetry EKG: sinus tachy @103bpm Head CT: involutional changes, periventricualrhypoattenuation suggesting chronic ischemic changes TSH/Free T4: NORMAL AARON x2: NEGATIVE Orthostatic VS Echo cancelled due to patient becoming agitated * Gave her one time dose ativan 0.5mg IV 02/11/18 Fall precaution Continue to monitor Consult: Cardiology, Dr. Fong; help appreciated * Diagnostic options include an echocardiogram thyroid function and stonehand rhythm monitoring (2) Senile dementia with delusional features Assessment and Plan: Continue home medication: Rivastigmine 3mg po BID, Seroquel 37.5mg PO HS History of elopement- 1:1 observation (3) HTN (hypertension) Assessment and Plan: Continue home medications: clonidine 0.1mg PO HS, losartan 100mg daily, propanolol 120mg po daily Continue to monitor (4) DM2 (diabetes mellitus, type 2) Assessment and Plan: Home medication: glipizide 10mg daily, jardiance 10mg daily, metformin 1000mg BID, toujeo 10units sc daily, tradjenta 5mg daily, trulicity 0.75mg sc weekly Continue metformin 1000mg PO BID, Glipizide 10mg PO daily; adjust as needed Hypoglycemic protocol ISS Accuchecks (5) HLD (hyperlipidemia) Assessment and Plan: Home medication: Simvastatin 40mg PO HS Started Crestor 10mg PO daily (6) Prophylactic measure Assessment and Plan: DVT: SCDs GI: not indicated Heart health, 2g Na, Low carb diet Fall precautions 1:1 due to elopement risk POLST- DNI (brought in with paperwork from [place]) Discharge Exam - Head Exam Head Exam: NORMAL INSPECTION. absent: ATRAUMATIC - Additional Findings Additional findings: Constitutional Appears: Confused - Head Exam Head Exam: NORMAL INSPECTION. absent: ATRAUMATIC - Eye Exam Eye Exam: EOMI, Normal appearance - ENT Exam ENT Exam: Mucous Membranes Moist - Respiratory Exam Respiratory Exam: Clear to Auscultation Bilateral, NORMAL BREATHING PATTERN. absent: Rales, Rhonchi, Wheezes, Respiratory Distress - Cardiovascular Exam Cardiovascular Exam: REGULAR RHYTHM, +S1, +S2 - GI/Abdominal Exam GI & Abdominal Exam: Normal Bowel Sounds, Soft. absent: Distended, Firm, Tenderness - Extremities Exam Extremities exam: Positive for: full ROM, normal inspection, pedal pulses present. Negative for: pedal edema, tenderness - Neurological Exam Neurological exam: Altered, CN II-XII Intact Additional comments: Motor and Sensory intact - Psychiatric Exam Psychiatric exam: Normal Mood - Skin Skin Exam: Dry, Intact, Normal Color, Warm Discharge Plan - Follow Up Plan Condition: STABLE Disposition: HOME/ ROUTINE Instructions: Diabetes Exchange Diet, Carbohydrate Counting Diet, Diabetes Diet , Syncope (Fainting) (DC), High Cholesterol (DC), Syncope (GEN) Additional Instructions: Patient is medically stable for discharge. It is safe for patient to go back to skilled nursing. There were no changes made to patient's home medications - please continue all home medications as previously prescribed. Please have your PMD come visit you and monitor your course. If symptoms return, please go to nearest emergency department. <Max Sauer - Last Filed: 02/13/18 07:17> Provider - Provider Date of Admission: 02/09/18 05:14 Attending physician: Max Sauer, DO Hospital Course - Lab Results Lab Results: Most Recent Lab Values WBC 4.8 K/uL (4.8-10.8) 02/12/18 07:11 RBC 4.43 Mil/uL (3.80-5.20) 02/12/18 07:11 Hgb 12.9 g/dL (11.0-16.0) 02/12/18 07:11 Hct 38.1 % (34.0-47.0) 02/12/18 07:11 MCV 86.2 fL (81.0-99.0) 02/12/18 07:11 MCH 29.2 pg (27.0-31.0) 02/12/18 07:11 MCHC 33.9 g/dL (33.0-37.0) 02/12/18 07:11 RDW 14.0 % (11.5-14.5) 02/12/18 07:11 Plt Count 262 K/uL (130-400) 02/12/18 07:11 MPV 7.9 fL (7.2-11.7) 02/12/18 07:11 Neut % (Auto) 25.8 % (50.0-75.0) L 02/12/18 07:11 Lymph % (Auto) 58.5 % (20.0-40.0) H 02/12/18 07:11 [place] % (Auto) 10.8 % (0.0-10.0) H 02/12/18 07:11 Eos % (Auto) 4.4 % (0.0-4.0) H 02/12/18 07:11 Baso % (Auto) 0.5 % (0.0-2.0) 02/12/18 07:11 Neut # (Auto) 1.2 K/uL (1.8-7.0) L 02/12/18 07:11 Lymph # (Auto) 2.8 K/uL (1.0-4.3) 02/12/18 07:11 [place] # (Auto) 0.5 K/uL (0.0-0.8) 02/12/18 07:11 Eos # (Auto) 0.2 K/uL (0.0-0.7) 02/12/18 07:11 Baso # (Auto) 0.0 K/uL (0.0-0.2) 02/12/18 07:11 Sodium 145 mmol/L (132-148) 02/12/18 07:11 Potassium 4.2 mmol/L (3.6-5.2) 02/12/18 07:11 Chloride 107 mmol/L (98-107) 02/12/18 07:11 Carbon Dioxide 28 mmol/L (22-30) 02/12/18 07:11 Anion Gap 14 (10-20) 02/12/18 07:11 BUN 25 mg/dL (7-17) H 02/12/18 07:11 Creatinine 1.0 mg/dL (0.7-1.2) 02/12/18 07:11 Est GFR ( Amer) > 60 02/12/18 07:11 Est GFR (Non-Af Amer) 54 02/12/18 07:11 POC Glucose (mg/dL) 191 mg/dL (65-110) H 02/12/18 20:57 Random Glucose 183 mg/dL (65-105) H 02/12/18 07:11 Calcium 10.9 mg/dl (8.6-10.4) H 02/12/18 07:11 Total Bilirubin 0.4 mg/dL (0.2-1.3) 02/12/18 07:11 AST 26 U/L (14-36) 02/12/18 07:11 ALT 25 U/L (9-52) 02/12/18 07:11 Alkaline Phosphatase 55 U/L (38-126) 02/12/18 07:11 Total Creatine Kinase 47 U/L (30-135) 02/09/18 14:06 CK-MB (Mass) 1.14 ng/mL (0.0-3.38) 02/09/18 14:06 Troponin I < 0.0120 ng/mL (0.00-0.120) 02/09/18 14:06 Total Protein 7.1 g/dL (6.3-8.3) 02/12/18 07:11 Albumin 4.1 g/dL (3.5-5.0) 02/12/18 07:11 Globulin 3.0 gm/dL (2.2-3.9) 02/12/18 07:11 Albumin/Globulin Ratio 1.4 (1.0-2.1) 02/12/18 07:11 Thyroxine (T4) 7.11 ug/dL (5.5-11.0) 02/09/18 06:45 TSH 3rd Generation 0.48 mIU/L (0.46-4.68) 02/09/18 06:45 Attending/Attestation - Attestation I have personally seen and examined this patient.: Yes I have fully participated in the care of the patient.: Yes I have reviewed all pertinent clinical information, including history, physical exam and plan: Yes Notes (Text): 02/13/18 07:10 Medical attending: Patient was seen and examined by me. Reviewed the above note by the senior medical transcriptionist and agree At this time the patient has been stable. Only a partial echo was completed as the patient was reportedly agitated while down at the echo lab. While being monitored on telemetry she has not had any episodes of the bradycardia that was earlier reported. Lab work upon review has been stable both her CBC as well as CMPs. The blood pressure has been steady as well. thank you Max Sauer
[2018-02-12 18:46] VITALS: RESP 20; O2SAT 98
[2018-02-12] MEDS: QUEtiapine 12.5 MG TAB PO SCH (22:18)
[2018-02-13 00:26] VITALS: TEMP 98.1
[2018-02-13] MEDS: (Novolin R) Insulin Human Regular 100 units/ml vial SC SCH (07:30)
[2018-02-13 08:18] VITALS: BP 124/70; PULSE 62
[2018-02-13] MEDS: Multiple Vitamins Tab PO SCH ×2 (10:16→10:32)
[2018-02-13] MEDS: Propranolol 60 mg ER Cap PO SCH ×2 (10:18→10:32)
[2018-02-13] MEDS: Enoxaparin 40 mg Syringe SC SCH (10:18)
== END 2018-02-13 12:35 ==
LOC: C.ER 01:46 → C.9E 05:14 → C.6T 18:01 → C.5S 02-12 18:52
PROVIDERS: ADMIT Hospitalist; ATTEND Hospitalist
DX: R00.1 Bradycardia, unspecified (principal); R41.82 Altered mental status, unspecified; F03.90 Unspecified dementia, unspecified severity, without behavioral disturbance, psychotic disturbance, mood disturbance, and anxiety; E78.5 Hyperlipidemia, unspecified; E11.9 Type 2 diabetes mellitus without complications; M17.12 Unilateral primary osteoarthritis, left knee; I10 Essential (primary) hypertension; Z91.81 History of falling
CPT/HCPCS: 36415; 70450; 80053; 82948; 84436; 84443; 84484; 85025; 93005; 93321; 96372; 99285; G0378; J1650; J2060